=== PATIENT | male | born 1975 | race Caucasian/White ===

== ENCOUNTER → 2020-05-12 17:24 | Outpatient (BNVA) | payer MEDICARE, MEDICAID, SELFPAY | PROVIDERS: Visit Provider Emergency Medicine | DX: Z11.59 Encounter for screening for other viral diseases (principal); J44.1 Chronic obstructive pulmonary disease with (acute) exacerbation | CPT/HCPCS: 87635 ==

== ENCOUNTER → 2023-08-13 12:45 | Outpatient (BNVA) | payer MEDICARE, MEDICAID, SELFPAY | PROVIDERS: PCP Physician Assistant; Visit Provider Nurse Practitioner Family | DX: R35.0 Frequency of micturition (principal); Z83.3 Family history of diabetes mellitus; R35.89 Other polyuria; R73.9 Hyperglycemia, unspecified; G62.9 Polyneuropathy, unspecified; J44.1 Chronic obstructive pulmonary disease with (acute) exacerbation; J45.901 Unspecified asthma with (acute) exacerbation | CPT/HCPCS: 80053; 81000; 83036; 85025 ==